=== PATIENT | female | born 1970 ===

== ENCOUNTER 2024-09-18 10:11 | Outpatient (OUT) | payer OTHER, SELFPAY ==
--- NOTE | 2024-09-18 | XR_ITS ---
[facility] [place] [id number] Patient Name: PEÑA KERR MRN: [id number] date: 1970 Sex: F Assigned Patient Location: [facility] Current Patient Location: [facility] Accession/Order Number: [id number] Exam Date: 09/18/2024 11:08 Report Date: 09/18/2024 12:03 At the request of: ELENA WHITTINGTON DO Procedure: XR knee LT 4V LEFT KNEE - 4 views COMPARISON: None CLINICAL DATA: Left knee pain for the past 2 months with radiation down the leg. No reported injury. Weightbearing AP, lateral, tunnel and patellar views were obtained. There is no acute fracture or dislocation. No patellar subluxation is seen. There is no disproportionate joint space narrowing. There is minimal marginal spurring. No significant knee effusion or soft tissue swelling is seen. XR/XR knee LT 4V IMPRESSION: MINIMAL DEGENERATIVE CHANGE. NO ACUTE BONY FINDINGS. Impression dictated by: Kathya Nicholas M.D. 09/18/2024 12:03 PM Dictation Location: [place] [id number] Electronically authenticated by: [id number] Date: 09/18/2024 12:03
== END 2024-09-18 10:12 | disposition home or self-care (01) ==
LOC: RAD 10:11
PROVIDERS: PCP Nurse Practitioner Family; Visit Provider Orthopaedic Surgery Orthopaedic Trauma
DX: M25.562 Pain in left knee (principal)
CPT/HCPCS: 73564